=== PATIENT | male | born 1940 | race Caucasian/White ===

== ENCOUNTER → 2016-08-30 | Outpatient (CLI) | payer MEDICARE | END | disposition home or self-care (01) | LOC: CVU 09:46 | PROVIDERS: ATTEND Internal Medicine Cardiovascular Disease | DX: I08.1 Rheumatic disorders of both mitral and tricuspid valves (principal) | CPT/HCPCS: 93306 ==

== ENCOUNTER 2017-12-03 11:26 | Inpatient (IN) | payer MEDICARE ==
[~2017-12-03] VITALS: Ht 167.6 cm; Wt 76.8 kg
[2017-12-03] MEDS ORDERED: BUPR300T4 PO (11:37)
[2017-12-03] MEDS ORDERED: LOVA20TA2 PO (11:37)
[2017-12-03] MEDS ORDERED: PANT40TA5 PO (11:37)
[2017-12-03] MEDS ORDERED: FLUO20CA8 PO (11:37)
[2017-12-03] MEDS ORDERED: TAMS0.4C2 PO (11:37)
[2017-12-03] MEDS ORDERED: BUDE10.2 INH (11:37)
[2017-12-03] MEDS ORDERED: CLON0.5T20 PO (11:37)
[2017-12-03 11:49] LABS: BASOPHILS # (AUTO) 0.03 x10^3/uL (0-0.1); BASOPHILS % (AUTO) 0 % (0-1); EOSINOPHILS # (AUTO) 0.01 x10^3/uL (0-0.4); EOSINOPHILS % (AUTO) 0 % (1-7); LYMPHOCYTES # (AUTO) 0.99 x10^3/uL (1-3.4); LYMPHOCYTES % (AUTO) 14 % (22-44); MD NO; MEAN CORPUSCULAR HEMOGLOBIN 32.3 pg (27.5-34.5); MEAN CORPUSCULAR HGB CONC 34.5 g/dL (33.2-36.2); MEAN CORPUSCULAR VOLUME 93.5 fL (81-97); MONOCYTES # (AUTO) 0.34 x10^3/uL (0.2-0.8); MONOCYTES % (AUTO) 5 % (2-9); NEUTROPHILS # (AUTO) 5.86 x10^3/uL (1.8-6.8); NEUTROPHILS % (AUTO) 81 % (42-75); PLATELET COUNT 213 x10^3/uL (130-400); RED BLOOD COUNT 4.57 x10^6/uL (4.38-5.82); RED CELL DISTRIBUTION WIDTH 13.6 % (9.4-14.8)
[2017-12-03] MEDS ORDERED: ASPIRIN 81 MG TABLET CHEW ONE (11:51)
[2017-12-03 11:57] LABS: INTERNATIONAL NORMALIZED RATIO 1.04 (0.93-1.1); PROTHROMBIN TIME 10.7 Seconds (9.6-11.5)
[2017-12-03 11:58] LABS: ALANINE AMINOTRANSFERASE 30 U/L (12-78); ALBUMIN 3.3 g/dL (3.4-5.0); ANION GAP 5 mmol/L (5-15); CALCIUM 7.8 mg/dL (8.5-10.1); CHLORIDE 108 mmol/L (98-107)
[2017-12-03] MEDS ORDERED: PLEASE ENTER ALLERGIES MC SCH (12:00)
[2017-12-03] MEDS ORDERED: ASPIRIN 81 MG TABLET CHEW PO ONE (12:00)
[2017-12-03] MEDS ORDERED: PLEASE ENTER HEIGHT AND WEIGHT MC SCH (12:00)
[2017-12-03] MEDS ORDERED: SODIUM CHLORIDE FLUSH 10ML SYR IVF ONE (12:00)
[2017-12-03 12:02] LABS: ALKALINE PHOSPHATASE 65 U/L (45-117); BILIRUBIN,TOTAL 0.6 mg/dL (0.2-1.0); CREATININE 1.09 mg/dL (0.7-1.3); TOTAL PROTEIN 6.3 g/dL (6.4-8.2); TROPONIN I < 0.015 ng/mL (0.000-0.045)
[2017-12-03] MEDS ORDERED: hydrALAzine 20 MG/ML, 1ML IVPush PRN (13:30)
[2017-12-03] MEDS ORDERED: morphine SULFATE 10 MG/ML, 1ML IVPush PRN (13:30)
[2017-12-03] MEDS ORDERED: BISACODYL 10 MG SUPP PR PRN (13:30)
[2017-12-03] MEDS ORDERED: ACETAMINOPHEN 325 MG TABLET PO PRN (13:30)
[2017-12-03] MEDS ORDERED: DOCUSATE 100 MG CAPSULE PO PRN (13:30)
[2017-12-03] MEDS ORDERED: POLYETHYLENE GLYCOL 17 GM PACKET PO PRN (13:30)
[2017-12-03] MEDS ORDERED: NITROGLYCERIN 0.4 MG BOTTLE (25 TABS) SL PRN (13:30)
[2017-12-03 13:53] VITALS: BP 158/70
[2017-12-03 14:05] VITALS: BP 142/66
[2017-12-03] MEDS ORDERED: SODIUM CHLORIDE 0.9% 1,000 ML IV ONE (14:51)
[2017-12-03] MEDS: HEPARIN 5,000 UNITS/ML, 1ML SQ SCH ×2 (15:00→21:11)
[2017-12-03 15:02] LABS: TROPONIN I < 0.015 ng/mL (0.000-0.045)
[2017-12-03 15:07] LABS: THYROID STIMULATING HORMONE 0.933 mIU/L (0.358-3.740)
[2017-12-03 16:14] LABS: HEMOGLOBIN A1C 6.1 % (4.2-6.3)
[2017-12-03] MEDS ORDERED: ALBUTEROL SULFATE 2.5 MG/3 ML ONE (16:19)
[2017-12-03] MEDS ORDERED: ALBUTEROL SULFATE 2.5 MG/3 ML NPPB PRN (16:30)
[2017-12-03 17:29] LABS: AMPHETAMINE SCREEN, URINE Negative (Negative); BARBITURATE SCREEN, URINE Negative (Negative); BENZODIAZEPINE SCREEN, URINE Negative (Negative); CANNABINOID SCREEN, URINE Negative (Negative); COCAINE SCREEN, URINE Negative (Negative); METHADONE SCREEN, URINE Negative (Negative); OPIATE SCREEN, URINE Negative (Negative)
[2017-12-03 19:48] VITALS: BP 119/58
[2017-12-03 19:48] LABS: TROPONIN I < 0.015 ng/mL (0.000-0.045)
[2017-12-03] MEDS: TAMSULOSIN 0.4 MG CAP.ER.24H PO SCH (20:05)
[2017-12-03] MEDS: LOVASTATIN 20 MG TABLET PO SCH (21:11)
[2017-12-04 01:57] VITALS: BP 137/64
[2017-12-04] MEDS: ASPIRIN 81 MG TABLET EC PO SCH (05:38)
[2017-12-04] MEDS: HEPARIN 5,000 UNITS/ML, 1ML SQ SCH ×3 (05:38→19:50)
[2017-12-04 06:03] LABS: BASOPHILS # (AUTO) 0.02 x10^3/uL (0-0.1); BASOPHILS % (AUTO) 0 % (0-1); EOSINOPHILS # (AUTO) 0.19 x10^3/uL (0-0.4); EOSINOPHILS % (AUTO) 2 % (1-7); LYMPHOCYTES # (AUTO) 1.65 x10^3/uL (1-3.4); LYMPHOCYTES % (AUTO) 21 % (22-44); MD NO; MEAN CORPUSCULAR HEMOGLOBIN 32.6 pg (27.5-34.5); MEAN CORPUSCULAR HGB CONC 34.6 g/dL (33.2-36.2); MEAN CORPUSCULAR VOLUME 94.3 fL (81-97); MEAN PLATELET VOLUME 7.6 fL (7.4-10.4); MONOCYTES # (AUTO) 0.58 x10^3/uL (0.2-0.8); MONOCYTES % (AUTO) 8 % (2-9); NEUTROPHILS # (AUTO) 5.28 x10^3/uL (1.8-6.8); NEUTROPHILS % (AUTO) 68 % (42-75); PLATELET COUNT 216 x10^3/uL (130-400); RED BLOOD COUNT 4.59 x10^6/uL (4.38-5.82); RED CELL DISTRIBUTION WIDTH 13.5 % (9.4-14.8)
[2017-12-04 06:04] LABS: ANION GAP 6 mmol/L (5-15); CHLORIDE 110 mmol/L (98-107)
[2017-12-04 06:15] LABS: ALANINE AMINOTRANSFERASE 27 U/L (12-78); ALBUMIN 3.1 g/dL (3.4-5.0); ALKALINE PHOSPHATASE 67 U/L (45-117); BILIRUBIN,TOTAL 0.6 mg/dL (0.2-1.0); CALCIUM 8.4 mg/dL (8.5-10.1); CHOL/HDL RATIO 2.8; CHOLESTEROL, TOTAL 160 mg/dL (140-239); CREATININE 0.98 mg/dL (0.7-1.3); HDL CHOL % 36 % (26-37); HDL CHOLESTEROL (DIRECT) 58 mg/dL (40-60); LDL CHOLESTEROL,CALCULATED 73 mg/dL (54-169); LDL/HDL RATIO 1.3 (0.5-3.0); TOTAL PROTEIN 6.4 g/dL (6.4-8.2); TRIGLYCERIDES 143 mg/dL (50-200); VLDL CHOLESTEROL 29 mg/dL (0-25)
[2017-12-04 07:47] VITALS: BP 168/91
[2017-12-04] MEDS: PANTOPROZOLE 40MG TABLET PO SCH (07:47)
[2017-12-04] MEDS: TEMPLATE NON-FORMULARY MED. (Budesonide/Formoterol Fumarate (Symbicort 160-4.5 Mcg Inhaler INH SCH (07:47)
[2017-12-04] MEDS: TAMSULOSIN 0.4 MG CAP.ER.24H PO SCH (07:48)
[2017-12-04] MEDS ORDERED: TAMSULOSIN 0.4 MG CAP.ER.24H PO SCH ×2 (09:00→21:00)
[2017-12-04 12:49] VITALS: BP 164/82
[2017-12-04] MEDS ORDERED: MIDAZOLAM 1 MG/ML, 5ML ONE (14:50)
[2017-12-04] MEDS ORDERED: FENTANYL PF 100 MCG/2ML ONE (14:50)
[2017-12-04] MEDS ORDERED: TICAGRELOR 90 MG TABLET ONE (14:50)
[2017-12-04] MEDS ORDERED: VERAPAMIL 2.5 MG/ML, 2ML ONE (14:51)
[2017-12-04] MEDS ORDERED: BIVALIRUDIN 250 MG ONE (14:51)
[2017-12-04] MEDS ORDERED: HEPARIN 1,000 UNITS/ML, 10ML ONE (14:51)
[2017-12-04] MEDS: LISINOPRIL 10 MG TABLET PO SCH (17:00)
[2017-12-04 19:10] VITALS: BP 151/71
[2017-12-04] MEDS: LOVASTATIN 20 MG TABLET PO SCH (19:50)
[2017-12-05 01:34] VITALS: BP 148/66
[2017-12-05] MEDS: HEPARIN 5,000 UNITS/ML, 1ML SQ SCH ×2 (05:07→08:16)
[2017-12-05 05:38] LABS: BASOPHILS # (AUTO) 0.03 x10^3/uL (0-0.1); BASOPHILS % (AUTO) 0 % (0-1); EOSINOPHILS % (AUTO) 3 % (1-7); LYMPHOCYTES % (AUTO) 22 % (22-44); MD NO; MEAN CORPUSCULAR HEMOGLOBIN 32.7 pg (27.5-34.5); MEAN CORPUSCULAR HGB CONC 34.4 g/dL (33.2-36.2); MEAN CORPUSCULAR VOLUME 94.8 fL (81-97); MEAN PLATELET VOLUME 7.5 fL (7.4-10.4); MONOCYTES # (AUTO) 0.58 x10^3/uL (0.2-0.8); MONOCYTES % (AUTO) 8 % (2-9); NEUTROPHILS # (AUTO) 5.24 x10^3/uL (1.8-6.8); NEUTROPHILS % (AUTO) 68 % (42-75); PLATELET COUNT 206 x10^3/uL (130-400); RED BLOOD COUNT 4.38 x10^6/uL (4.38-5.82); RED CELL DISTRIBUTION WIDTH 13.6 % (9.4-14.8)
[2017-12-05 06:19] LABS: ANION GAP 7 mmol/L (5-15); CALCIUM 7.8 mg/dL (8.5-10.1); CHLORIDE 108 mmol/L (98-107)
[2017-12-05 06:24] LABS: ALANINE AMINOTRANSFERASE 25 U/L (12-78); ALKALINE PHOSPHATASE 62 U/L (45-117); BILIRUBIN,TOTAL 0.7 mg/dL (0.2-1.0); CREATININE 1.02 mg/dL (0.7-1.3); TOTAL PROTEIN 5.9 g/dL (6.4-8.2)
[2017-12-05 07:16] VITALS: BP 148/75
[2017-12-05] MEDS: LISINOPRIL 10 MG TABLET PO SCH (08:14)
[2017-12-05] MEDS: ASPIRIN 81 MG TABLET EC PO SCH (08:14)
[2017-12-05] MEDS: PANTOPROZOLE 40MG TABLET PO SCH (08:16)
[2017-12-05] MEDS: TEMPLATE NON-FORMULARY MED. (Budesonide/Formoterol Fumarate (Symbicort 160-4.5 Mcg Inhaler INH SCH (08:16)
[2017-12-05 13:20] VITALS: BP 143/76
[2017-12-05] MEDS ORDERED: LISI-167 PO (15:28)
[2017-12-05] MEDS ORDERED: ASPI-621 PO (15:28)
== END 2017-12-05 17:13 | disposition home or self-care (01) | DRG 261 ==
LOC: ED 11:43 → EDIP 12:12 → 5SO 13:33
PROVIDERS: ADMIT Family Medicine; ATTEND Family Medicine
PROC: 0JH632Z Insertion of Monitoring Device into Chest Subcutaneous Tissue and Fascia, Percutaneous Approach (ICD-10-PCS; principal; 2017-12-04)
DX: I95.9 Hypotension, unspecified (principal); E44.1 Mild protein-calorie malnutrition; I73.9 Peripheral vascular disease, unspecified; E78.5 Hyperlipidemia, unspecified; J45.909 Unspecified asthma, uncomplicated; G47.33 Obstructive sleep apnea (adult) (pediatric); I10 Essential (primary) hypertension; I25.10 Atherosclerotic heart disease of native coronary artery without angina pectoris; J44.9 Chronic obstructive pulmonary disease, unspecified; K21.9 Gastro-esophageal reflux disease without esophagitis; N40.0 Benign prostatic hyperplasia without lower urinary tract symptoms; Z82.3 Family history of stroke; Z82.49 Family history of ischemic heart disease and other diseases of the circulatory system; Z83.3 Family history of diabetes mellitus; Z85.72 Personal history of non-Hodgkin lymphomas; Z87.11 Personal history of peptic ulcer disease; Z92.21 Personal history of antineoplastic chemotherapy; Z87.891 Personal history of nicotine dependence; Z92.3 Personal history of irradiation; Z96.642 Presence of left artificial hip joint; Z90.49 Acquired absence of other specified parts of digestive tract; M94.0 Chondrocostal junction syndrome [Tietze]
CPT/HCPCS: 33282; 36415; 71045; 78452; 80053; 80061; 80307; 83036; 83735; 84100; 84439; 84443; 84484; 85025; 85610; 85730; 93005; 93017; 93306; 93458; 93880; 94640; 99156; 99157; 99285; C1764; C1769; C1894; G0378; J0583; J1644; J2250; J2785; J3010; J7613; A9502; J7030; Q9967

== ENCOUNTER → 2020-05-09 | Outpatient (CLI) | payer MEDICARE ==
[~2020-05-09] MED LIST: ASPI81TA45 PO; BUDE10.2 INH; BUPR300T94 PO; CLON0.5T20 PO; FLUO20CA23 PO; LISI-167 PO; LOVA20TA2 PO; PANT40TA6 PO; TAMS0.4C2 PO
== END | disposition home or self-care (01) ==
LOC: CFH 13:35
PROVIDERS: ATTEND Internal Medicine Cardiovascular Disease
DX: I36.1 Nonrheumatic tricuspid (valve) insufficiency (principal); R06.02 Shortness of breath; E78.2 Mixed hyperlipidemia; I25.10 Atherosclerotic heart disease of native coronary artery without angina pectoris; I67.9 Cerebrovascular disease, unspecified; J44.9 Chronic obstructive pulmonary disease, unspecified; R55 Syncope and collapse
CPT/HCPCS: 71046; 93306